=== PATIENT | male | born 1995 | race Hispanic/Latino ===

== ENCOUNTER → 2024-04-12 | Outpatient (CLI) | payer OTHER | LOC: M RAD 07:11 | PROVIDERS: ATTEND Orthopaedic Surgery | DX: M67.431 Ganglion, right wrist (principal) ==

== ENCOUNTER 2024-06-08 09:50 | Day surgery (SDC) | payer OTHER ==
[~2024-06-08] VITALS: Ht 175.3 cm; Wt 101.0 kg
[2024-06-08] MEDS ORDERED: LR 1,000 ML IV SCH ×2 (09:55→16:10)
[2024-06-08] MEDS ORDERED: fentaNYL 100 MCG/2 ML INJECTION As Ordered ONE (14:15)
[2024-06-08] MEDS ORDERED: MIDAZOLAM INJ 2MG/2ML VIAL As Ordered ONE (14:15)
[2024-06-08] MEDS ORDERED: ONDANSETRON 4MG 2ML VIAL As Ordered ONE (14:16)
[2024-06-08] MEDS ORDERED: KETOROLAC 60MG 2ML VIAL As Ordered ONE (14:16)
[2024-06-08] MEDS ORDERED: propofoL 200 MG/20 ML VIAL As Ordered ONE (14:16)
[2024-06-08] MEDS ORDERED: LIDOCAINE 2% 100MG/5ML SDV (FOR ANES.) As Ordered ONE (14:16)
[2024-06-08] MEDS: BACITRACIN OINTMENT 30GM TUBE As Ordered ONE (15:03)
[2024-06-08] MEDS: ceFAZolin SOD 2 GM in IV 1 EA IV ONE (15:18)
[2024-06-08] MEDS ORDERED: ACETAMINOPHEN 1000MG 100ML IV BAG As Ordered ONE (15:30)
[2024-06-08] MEDS ORDERED: fentaNYL 100 MCG/2 ML INJECTION IV PRN (16:10)
[2024-06-08] MEDS ORDERED: ONDANSETRON 4MG 2ML VIAL IV PRN (16:10)
[2024-06-08] MEDS ORDERED: HYDROMORPHONE HCL 0.5 MG/ 0.5 ML SYRINGE IV PRN (16:10)
[2024-06-08] MEDS: oxyCODONE 5MG TAB PO PRN (16:58)
[2024-06-08 17:30] VITALS: BP 132/71; TEMP 97.1; O2SAT 97
== END 2024-06-08 18:20 | disposition home or self-care (01) ==
LOC: M SDC 09:50
PROVIDERS: ATTEND Orthopaedic Surgery Hand Surgery
DX: M67.431 Ganglion, right wrist (principal); Z87.891 Personal history of nicotine dependence
CPT/HCPCS: 25111; 88304; J0131; J0665; J0690; J1100; J1885; J2250; J2405; J3010

== ENCOUNTER 2024-06-22 20:07 | Emergency (ER) | payer OTHER ==
[~2024-06-22] VITALS: Ht 175.3 cm; Wt 99.9 kg
[2024-06-22 20:08] VITALS: TEMP 98.5
[2024-06-22] MEDS ORDERED: IBUP-1114 PO (20:12)
[2024-06-22 21:32] VITALS: BP 135/64; O2SAT 97
== END 2024-06-22 21:32 | disposition home or self-care (01) ==
LOC: M ED 20:07
DX: Z48.817 Encounter for surgical aftercare following surgery on the skin and subcutaneous tissue (principal); Z79.1 Long term (current) use of non-steroidal anti-inflammatories (NSAID)